=== PATIENT | female | born 1985 | race African-American/Black ===

== ENCOUNTER 2016-10-17 05:32 | Emergency (ER) | payer OTHER ==
[~2016-10-17 05:32] MED LIST: ALBUTEROL17 GM IH; AUGMENTIN PO; BACTRIM DS TABL1 TA1 PO; BENADRYL25 MG PO; BENZONATATE PO; DELSYM30 MG/5 M1 PO; DOXYCYCLINE HY100 M1 PO; FLEXERIL10 MG PO; IBUPROFEN PO; LORTAB 5/500 TA1 TA1 PO; TAMIFLU75 M1 DOB; TYLENOL325 M1 PO
[2016-10-17 05:50] LABS: INFLUENZA A NEG (NEG); INFLUENZA B NEG (NEG)
== END 2016-10-17 06:12 | disposition home or self-care (01) ==
LOC: CED 05:32
PROVIDERS: Emergency Medicine
DX: J06.9 Acute upper respiratory infection, unspecified (principal); B34.9 Viral infection, unspecified; F17.200 Nicotine dependence, unspecified, uncomplicated
CPT/HCPCS: 87651; 87804; 99282